=== PATIENT | female | born 1980 | race Caucasian/White ===

== ENCOUNTER 2017-07-25 13:27 | Inpatient (IN) | payer OTHER ==
[2017-07-25] MEDS ORDERED: Sodium Chloride 0.9% 1,000 ML IV ONE (14:11)
--- NOTE | 2017-07-25 14:24 | EDM.PDOC ---
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 Patient indicates she thinks is 12-13 weeks as by dates as well as test.] Review of systems: As per history of present illness and below otherwise all systems reviewed and negative. Past medical history: As per history of present illness and as reviewed below otherwise noncontributory. Surgical history: As per history of present illness and as reviewed below otherwise noncontributory. Social history: No reported history of drug or alcohol abuse. Family history: As per history of present illness and as reviewed below otherwise noncontributory. Physical exam: HEENT: Atraumatic, normocephalic, pupils reactive, negative for conjunctival pallor or scleral icterus, mucous membranes moist, throat clear, neck supple, nontender, trachea midline. Lungs: Clear to auscultation, breath sounds equal bilaterally, chest nontender. Heart: S1S2, regular, negative for clicks, rubs, or JVD. Abdomen: Soft, nondistended, nontender. Negative for masses or hepatosplenomegaly. Negative for costovertebral tenderness. Pelvis: Stable nontender. Genitourinary: Cervix noted to be closed on pelvic exam speculum Rectal: Deferred. Extremities: Atraumatic, negative for cords or calf pain. Neurovascular unremarkable. Neuro: Awake, alert, oriented. Cranial nerves II through XII unremarkable. Cerebellum unremarkable. Motor and sensory unremarkable throughout. Exam nonfocal. Discussed with patient despite the land to have a home it was imperative that they establish a relationship with a resistance welding machine operator should they need one in the future. Discussed 6 weeks of pelvic rest Diagnostics: [CBC, CMP, UA, quantitative hCG] Therapeutics: [] Impression: [Threatened ] Plan: [Pelvic rest follow-up with OB] Definitive disposition and diagnosis as appropriate pending reevaluation and review of above. lower abdominal Pain Score (Numeric/FACES): 6 - Related Data Allergies Allergy/AdvReac Type Severity Reaction Status Date / Time Sulfa (Sulfonamide Allergy Hives Verified 07/25/17 13:41 Antibiotics) Home Meds: Home Meds . [No Known Home Meds] 07/25/17 [History] Past Medical History - Past Health History Medical/Surgical History: Denies Medical/Surgical History - Infectious Disease History Infectious Disease History: Reports: Chicken Pox Social & Family History - Family History Family Medical History: Noncontributory - Tobacco Use Smoking Status *Q: Never Smoker Second Hand Smoke Exposure: No - Caffeine Use Caffeine Use: Reports: Coffee - Recreational Drug Use Recreational Drug Use: No ED ROS GENERAL - Review of Systems Review Of Systems: See Below (See history of present illness) ED EXAM, GENERAL - Physical Exam Exam: See Below (See history of present illness) Course - Vital Signs Last Recorded V/S: Last Vital Signs Temp 36.9 C 07/25/17 13:37 Pulse 124 H 07/25/17 13:37 Resp 20 07/25/17 13:37 BP 120/72 07/25/17 13:37 Pulse Ox 98 07/25/17 13:37 - Orders/Labs/Meds Labs: Laboratory Tests 07/25/17 07/25/17 07/25/17 Range/Units 13:40 13:40 13:40 WBC 27.64 H (4.0-11.0) K/uL RBC 4.85 (4.30-5.90) M/uL Hgb 14.3 (12.0-16.0) g/dL Hct 40.5 (36.0-46.0) % MCV 83.5 (80.0-98.0) fL MCH 29.5 (27.0-32.0) pg MCHC 35.3 (31.0-37.0) g/dL RDW Std Deviation 42.0 (28.0-62.0) fl RDW Coeff of [place] 14 (11.0-15.0) % Plt Count 199 (150-400) K/uL MPV 9.70 (7.40-12.00) fL Add Manual Diff YES Neutrophils % (Manual) 90 H (48.0-80.0) % Band Neutrophils % 4 % Lymphocytes % (Manual) 2 L (16.0-40.0) % Monocytes % (Manual) 4 (0.0-15.0) % Nucleated RBC % 0.0 /100WBC Absolute Seg Neuts 24.9 H (1.4-5.7) Band Neutrophils # 1.1 Lymphocytes # (Manual) 0.6 (0.6-2.4) Monocytes # (Manual) 1.1 H (0.0-0.8) Nucleated RBCs # 0 K/uL Lactate (0.20-2.00) mmol/L Sodium (136-146) mmol/L Potassium (3.5-5.1) mmol/L Chloride (98-110) mmol/L Carbon Dioxide (21-31) mmol/L BUN (6.0-23.0) mg/dL Creatinine (0.6-1.5) mg/dL Est Cr Clr Drug Dosing mL/min Estimated GFR (MDRD) ml/min Glucose (60-110) mg/dL Calcium (8.8-10.8) mg/dL Total Bilirubin (0.1-1.5) mg/dL AST (5-40) IU/L ALT (8-54) IU/L Alkaline Phosphatase (40-150) Total Protein (6.0-8.0) g/dL Albumin (3.5-5.0) g/dL Globulin (2.0-3.5) g/dL Albumin/Globulin Ratio (1.3-2.8) HCG, Quant 00297.0 mIU/mL Urine Color Urine Appearance Urine pH (5.0-8.0) Ur Specific [place] (1.001-1.035) Urine Protein (NEGATIVE) mg/dL Urine Glucose (UA) (NEGATIVE) mg/dL Urine Ketones (NEGATIVE) mg/dL Urine Occult Blood (NEGATIVE) Urine Nitrite (NEGATIVE) Urine Bilirubin (NEGATIVE) Urine Urobilinogen (<2.0) EU/dL Ur Leukocyte Esterase (NEGATIVE) Urine RBC (0-2/HPF) Urine WBC (0-5/HPF) Ur Epithelial Cells (NONE-FEW) Urine Bacteria (NEGATIVE) Blood Type O POSITIVE 07/25/17 07/25/17 07/25/17 Range/Units 13:40 13:40 15:45 WBC (4.0-11.0) K/uL RBC (4.30-5.90) M/uL Hgb (12.0-16.0) g/dL Hct (36.0-46.0) % MCV (80.0-98.0) fL MCH (27.0-32.0) pg MCHC (31.0-37.0) g/dL RDW Std Deviation (28.0-62.0) fl RDW Coeff of [place] (11.0-15.0) % Plt Count (150-400) K/uL MPV (7.40-12.00) fL Add Manual Diff Neutrophils % (Manual) (48.0-80.0) % Band Neutrophils % % Lymphocytes % (Manual) (16.0-40.0) % Monocytes % (Manual) (0.0-15.0) % Nucleated RBC % /100WBC Absolute Seg Neuts (1.4-5.7) Band Neutrophils # Lymphocytes # (Manual) (0.6-2.4) Monocytes # (Manual) (0.0-0.8) Nucleated RBCs # K/uL Lactate 1.1 (0.20-2.00) mmol/L Sodium 135 L (136-146) mmol/L Potassium 3.5 (3.5-5.1) mmol/L Chloride 105 (98-110) mmol/L Carbon Dioxide 18 L (21-31) mmol/L BUN 8 (6.0-23.0) mg/dL Creatinine 0.6 (0.6-1.5) mg/dL Est Cr Clr Drug Dosing 126.05 mL/min Estimated GFR (MDRD) > 60.0 ml/min Glucose 113 H (60-110) mg/dL Calcium 9.4 (8.8-10.8) mg/dL Total Bilirubin 1.0 (0.1-1.5) mg/dL AST 17 (5-40) IU/L ALT 16 (8-54) IU/L Alkaline Phosphatase 48 (40-150) Total Protein 7.5 (6.0-8.0) g/dL Albumin 4.0 (3.5-5.0) g/dL Globulin 3.5 (2.0-3.5) g/dL Albumin/Globulin Ratio 1.1 L (1.3-2.8) HCG, Quant mIU/mL Urine Color YELLOW Urine Appearance CLEAR Urine pH 6.0 (5.0-8.0) Ur Specific [place] >= 1.030 (1.001-1.035) Urine Protein NEGATIVE (NEGATIVE) mg/dL Urine Glucose (UA) NEGATIVE (NEGATIVE) mg/dL Urine Ketones >=80 (NEGATIVE) mg/dL Urine Occult Blood LARGE H (NEGATIVE) Urine Nitrite NEGATIVE (NEGATIVE) Urine Bilirubin NEGATIVE (NEGATIVE) Urine Urobilinogen 0.2 (<2.0) EU/dL Ur Leukocyte Esterase SMALL (NEGATIVE) Urine RBC 8-10 (0-2/HPF) Urine WBC 3-5 (0-5/HPF) Ur Epithelial Cells OCCASIONAL (NONE-FEW) Urine Bacteria FEW (NEGATIVE) Blood Type Meds: Medications Discontinued Medications Generic Name Dose Route Start Last Admin Trade Name Freq PRN Reason Stop Dose Admin Sodium Chloride 1,000 mls @ 999 mls/hr 07/25/17 14:11 07/25/17 15:00 Normal Saline IV 07/25/17 15:11 999 mls/hr STAT ONE Administration Departure - Departure Time of Disposition: 16:30 Disposition: Home, Self-Care 01 Condition: Good Clinical Impression: Threatened - Discharge Information Referrals: PCP,None [Primary Care Provider] - Forms: ED Department Discharge Additional Instructions: The following information is given to patients seen in the emergency department who are being discharged to home. This information is to outline your options for follow-up care. We provide all patients seen in our emergency department with a follow-up referral. The need for follow-up, as well as the timing and circumstances, are variable depending upon the specifics of your emergency department visit. If you don't have a primary care physician on staff, we will provide you with a referral. We always advise you to contact your personal physician following an emergency department visit to inform them of the circumstance of the visit and for follow-up with them and/or the need for any referrals to a consulting specialist. The emergency department will also refer you to a specialist when appropriate. This referral assures that you have the opportunity for follow-up care with a specialist. All of these measure are taken in an effort to provide you with optimal care, which includes your follow-up. Under all circumstances we always encourage you to contact your private physician who remains a resource for coordinating your care. When calling for follow-up care, please make the office aware that this follow-up is from your recent emergency room visit. If for any reason you are refused follow-up, please contact the [facility] Emergency Department at and asked to speak to the emergency department charge nurse. Follow-up with the resistance welding machine operator as discussed Return to ED as needed as discussed [facility] Primary Care - Women's Health [address] [place] [id number]
[2017-07-25 14:30] LABS: CHLORIDE,CL 105 mmol/L (98-110); SODIUM,NA 135 mmol/L (136-146)
--- NOTE | 2017-07-25 14:33 | US ---
EXAMINATION: Transvaginal obstetric ultrasound HISTORY: Bleeding COMPARISON: None TECHNIQUE: Grayscale, M-mode, and color Doppler images obtained transvaginally. FINDINGS: There is a single live intrauterine noted with a heart rate of 160 bpm. There is a tiny crescentic area along the inferior aspect of the gestational sac. The mean sac diameter measur es 5.4 cm and the crown-rump length measures 6.3 cm. This gives an estimated gestational age at 12 we eks and 1 day with an estimated date of delivery at 02/05/2018. A trace free pelvic fluid is noted. The ovaries are not well identified. No adnexal masses. IMPRESSION: 1. Possible minimal subchorionic hemorrhage. 2. Trace free pelvic fluid. 3. Single live intrauterine .
[2017-07-25] MEDS ORDERED: Piperacillin/Tazobactam 3.375 GM in Sodium Chloride 0.9% 50 ML IV ONE (16:49)
[2017-07-25] MEDS ORDERED: Sodium Chloride 0.9% 1,000 ML IV STA (17:09)
--- NOTE | 2017-07-25 17:41 | PCM.HP ---
H&P History of Present Illness - General Date of Service: 07/25/17 Admit Problem/Dx: Admission Diagnosis/Problem Admission Diagnosis/Problem Hypotension Source of Information: Patient, Old Records, Provider - History of Present Illness Initial Comments - Free Text/Narative: This 37 y/o G3 P 2 woman with EGA about 12 weeks presents with scant vaginal bleeding, lower abdominal cramping, malaise and fever. She was seen in the ED and noted to be tachycardia with a heart rate of 124/ minute and with a leukocytosis of over 27,000/HPF. She has two children at home who have had recent symptoms of a viral syndrome. She had an ultrasound in the ED which was c/w possible subchorionic bleed and a viable single gestation. lower abdominal Pain Score (Numeric/FACES): 6 - Related Data Allergies/Adverse Reactions: Allergies Allergy/AdvReac Type Severity Reaction Status Date / Time Sulfa (Sulfonamide Allergy Hives Verified 07/25/17 13:41 Antibiotics) Home Medications: Home Meds . [No Known Home Meds] 07/25/17 [History] Past Medical History - Past Health History Medical/Surgical History: Denies Medical/Surgical History HEENT History: Reports: None Cardiovascular History: Denies: CAD, Cardiomyopathy, Heart Failure, Heart Murmur , Hypertension, [place] Respiratory History: Denies: COPD Gastrointestinal History: Denies: Cirrhosis Genitourinary History: Denies: Chronic Renal Insuffiency Musculoskeletal History: Denies: Amputation, Muscular Dystrophy Neurological History: Denies: Cerebral Palsy, CVA Endocrine/Metabolic History: Denies: Diabetes, Type I, Diabetes, Type II Hematologic History: Denies: Anticoagulation Therapy, Bleeding Disorder Immunologic History: Denies: Immunosuppression Oncologic (Cancer) History: Reports: None - Infectious Disease History Infectious Disease History: Reports: Chicken Pox Social & Family History - Family History Family Medical History: Noncontributory - Tobacco Use Smoking Status *Q: Never Smoker Second Hand Smoke Exposure: No - Caffeine Use Caffeine Use: Reports: Coffee - Alcohol Use Date/Time of Last Drink Comment: she has not had any alcohol intake during this and before drank about one time per month. - Recreational Drug Use Recreational Drug Use: No H&P Review of Systems - Review of Systems: Review Of Systems: See Below General: Reports: Fever, Malaise, Weakness HEENT: Denies: Sore Throat Pulmonary: Denies: Shortness of Breath, Wheezing, Cough, Sputum, Hemoptysis Cardiovascular: Reports: Other (blood pressure less than 100 mm Hg in the ED). Denies: Chest Pain, Edema Gastrointestinal: Reports: Abdominal Pain (intermittent lower abdominal / suprapubic cramping) Genitourinary: Denies: Dysuria, Frequency, Burning, Hematuria Skin: Denies: Cyanosis Neurological: Denies: Confusion Exam - Exam Exam: See Below - Vital Signs Vital Signs: Last Vital Signs Temp 100.1 F 07/25/17 16:40 Pulse 101 H 07/25/17 16:40 Resp 16 07/25/17 16:40 BP 96/57 L 07/25/17 16:40 Pulse Ox 96 07/25/17 16:40 Weight: 68.1 kg - Exam Quality Assessment: No: Supplemental Oxygen General: Alert, Oriented HEENT: EOMI. No: Mucosa Moist & [place] (lips dry) Neck: Supple, Trachea Midline Lungs: Clear to Auscultation, Normal Respiratory Effort Cardiovascular: Regular Rate, Regular Rhythm, Tachycardia GI/Abdominal Exam: Soft, Non-Tender (Female) Exam: Other (cervical exam by Jasmeet Hernandez, TAX ASSOCIATE ATTORNEY revealed that the cervix was closed) Back Exam: No: CVA Tenderness (L), CVA Tenderness (R) Extremities: Non-Tender, Slow Capillary Refill (cap refill in toes about two seconds). No: Pedal Edema Neurological: Cranial Nerves Intact, Normal Speech Neuro Extensive - Mental Status: Normal Mood/Affect, Normal Cognition Neuro Extensive - Motor, Sensory, Reflexes: No: Facial palsy (L), Facial Palsy ( R), Hemeplagia (R), Hemeplagia (L) Psychiatric: Alert, Normal Affect. No: Agitated - Patient Data Lab Results Last 24 hrs: Laboratory Results - last 24 hr 07/25/17 07/25/17 07/25/17 Range/Units 13:40 13:40 13:40 WBC 27.64 H (4.0-11.0) K/uL RBC 4.85 (4.30-5.90) M/uL Hgb 14.3 (12.0-16.0) g/dL Hct 40.5 (36.0-46.0) % MCV 83.5 (80.0-98.0) fL MCH 29.5 (27.0-32.0) pg MCHC 35.3 (31.0-37.0) g/dL RDW Std Deviation 42.0 (28.0-62.0) fl RDW Coeff of [place] 14 (11.0-15.0) % Plt Count 199 (150-400) K/uL MPV 9.70 (7.40-12.00) fL Add Manual Diff YES Neutrophils % (Manual) 90 H (48.0-80.0) % Band Neutrophils % 4 % Lymphocytes % (Manual) 2 L (16.0-40.0) % Monocytes % (Manual) 4 (0.0-15.0) % Nucleated RBC % 0.0 /100WBC Absolute Seg Neuts 24.9 H (1.4-5.7) Band Neutrophils # 1.1 Lymphocytes # (Manual) 0.6 (0.6-2.4) Monocytes # (Manual) 1.1 H (0.0-0.8) Nucleated RBCs # 0 K/uL Lactate (0.20-2.00) mmol/L Sodium (136-146) mmol/L Potassium (3.5-5.1) mmol/L Chloride (98-110) mmol/L Carbon Dioxide (21-31) mmol/L BUN (6.0-23.0) mg/dL Creatinine (0.6-1.5) mg/dL Est Cr Clr Drug Dosing mL/min Estimated GFR (MDRD) ml/min Glucose (60-110) mg/dL Calcium (8.8-10.8) mg/dL Total Bilirubin (0.1-1.5) mg/dL AST (5-40) IU/L ALT (8-54) IU/L Alkaline Phosphatase (40-150) Total Protein (6.0-8.0) g/dL Albumin (3.5-5.0) g/dL Globulin (2.0-3.5) g/dL Albumin/Globulin Ratio (1.3-2.8) HCG, Quant 24747.0 mIU/mL Urine Color Urine Appearance Urine pH (5.0-8.0) Ur Specific [place] (1.001-1.035) Urine Protein (NEGATIVE) mg/dL Urine Glucose (UA) (NEGATIVE) mg/dL Urine Ketones (NEGATIVE) mg/dL Urine Occult Blood (NEGATIVE) Urine Nitrite (NEGATIVE) Urine Bilirubin (NEGATIVE) Urine Urobilinogen (<2.0) EU/dL Ur Leukocyte Esterase (NEGATIVE) Urine RBC (0-2/HPF) Urine WBC (0-5/HPF) Ur Epithelial Cells (NONE-FEW) Urine Bacteria (NEGATIVE) Blood Type O POSITIVE 07/25/17 07/25/17 07/25/17 Range/Units 13:40 13:40 15:45 WBC (4.0-11.0) K/uL RBC (4.30-5.90) M/uL Hgb (12.0-16.0) g/dL Hct (36.0-46.0) % MCV (80.0-98.0) fL MCH (27.0-32.0) pg MCHC (31.0-37.0) g/dL RDW Std Deviation (28.0-62.0) fl RDW Coeff of [place] (11.0-15.0) % Plt Count (150-400) K/uL MPV (7.40-12.00) fL Add Manual Diff Neutrophils % (Manual) (48.0-80.0) % Band Neutrophils % % Lymphocytes % (Manual) (16.0-40.0) % Monocytes % (Manual) (0.0-15.0) % Nucleated RBC % /100WBC Absolute Seg Neuts (1.4-5.7) Band Neutrophils # Lymphocytes # (Manual) (0.6-2.4) Monocytes # (Manual) (0.0-0.8) Nucleated RBCs # K/uL Lactate 1.1 (0.20-2.00) mmol/L Sodium 135 L (136-146) mmol/L Potassium 3.5 (3.5-5.1) mmol/L Chloride 105 (98-110) mmol/L Carbon Dioxide 18 L (21-31) mmol/L BUN 8 (6.0-23.0) mg/dL Creatinine 0.6 (0.6-1.5) mg/dL Est Cr Clr Drug Dosing 126.05 mL/min Estimated GFR (MDRD) > 60.0 ml/min Glucose 113 H (60-110) mg/dL Calcium 9.4 (8.8-10.8) mg/dL Total Bilirubin 1.0 (0.1-1.5) mg/dL AST 17 (5-40) IU/L ALT 16 (8-54) IU/L Alkaline Phosphatase 48 (40-150) Total Protein 7.5 (6.0-8.0) g/dL Albumin 4.0 (3.5-5.0) g/dL Globulin 3.5 (2.0-3.5) g/dL Albumin/Globulin Ratio 1.1 L (1.3-2.8) HCG, Quant mIU/mL Urine Color YELLOW Urine Appearance CLEAR Urine pH 6.0 (5.0-8.0) Ur Specific [place] >= 1.030 (1.001-1.035) Urine Protein NEGATIVE (NEGATIVE) mg/dL Urine Glucose (UA) NEGATIVE (NEGATIVE) mg/dL Urine Ketones >=80 (NEGATIVE) mg/dL Urine Occult Blood LARGE H (NEGATIVE) Urine Nitrite NEGATIVE (NEGATIVE) Urine Bilirubin NEGATIVE (NEGATIVE) Urine Urobilinogen 0.2 (<2.0) EU/dL Ur Leukocyte Esterase SMALL (NEGATIVE) Urine RBC 8-10 (0-2/HPF) Urine WBC 3-5 (0-5/HPF) Ur Epithelial Cells OCCASIONAL (NONE-FEW) Urine Bacteria FEW (NEGATIVE) Blood Type Result Diagrams: 07/25/17 13:40 07/25/17 13:40 *Q Meaningful Use (ADM) - VTE *Q VTE Criteria *Q: - Stroke *Q Stroke Criteria *Q: - AMI *Q AMI Criteria *Q: - Problem List (1) Sepsis SNOMED Code(s): 90707261 ICD Code: A41.9 - SEPSIS, UNSPECIFIED ORGANISM Status: Acute Current Visit: Yes (2) Vaginal bleeding affecting early SNOMED Code(s): 661977639 ICD Code: O20.8 - OTHER HEMORRHAGE IN EARLY Status: Acute Current Visit: Yes Problem List Initiated/Reviewed/Updated: Yes Orders Last 24hrs: Active Orders 24 hr Category Date Time Status Patient Status [ADT] Stat ADT 07/25/17 17:03 Active CULTURE BLOOD [BC] Stat Lab 07/25/17 17:00 Received CULTURE BLOOD [BC] Stat Lab 07/25/17 17:26 Received CULTURE URINE [RM] Stat Lab 07/25/17 17:14 Uncollected Sodium Chloride 0.9% [Normal Saline] 1,000 ml Med 07/25/17 17:09 Active IV NOW Blood Culture x2 Reflex Set [OM.PC] Stat Oth 07/25/17 16:41 Ordered Medication Orders Sodium Chloride (Normal Saline) 1,000 mls @ 999 mls/hr IV NOW STA Stop: 07/25/17 18:09 Assessment/Plan Comment:: 07/25/[address] Alfaro by telephone who agreed to see the patient in consultation. will start on broad spectrum antibiotics . Blood cultures ordered in the ED fluid resuscitation. Anshul Zambrano MD
[2017-07-25] MEDS ORDERED: Ondansetron 4 MG/2 ML SDV IVPUSH PRN (17:45)
[2017-07-25] MEDS ORDERED: Acetaminophen 325 MG Tab PO PRN (17:45)
[2017-07-25] MEDS ORDERED: Folic Acid 1 MG Tab PO SCH (18:00)
[2017-07-25] MEDS ORDERED: Ondansetron 4 MG/2 ML SDV IVPUSH ONE (18:06)
[2017-07-25] MEDS ORDERED: Morphine 10 MG/ML Syringe IV ONE (18:06)
[2017-07-25] MEDS ORDERED: Morphine 2 MG/ML Syringe IVPUSH ONE (18:19)
[2017-07-25] MEDS ORDERED: Morphine 2 MG/ML Syringe ONE (18:20)
[2017-07-25] MEDS ORDERED: HYDROmorphone 2 MG/ML Syringe IVPUSH ONE (18:41)
[2017-07-25] MEDS ORDERED: HYDROmorphone 1 MG/ML Syringe ONE (18:43)
[2017-07-25] MEDS ORDERED: HYDROmorphone 1 MG/ML Syringe IVPUSH STA (18:46)
[2017-07-25] MEDS: Sodium Chloride 0.9% 1,000 ML IV SCH (20:15)
--- NOTE | 2017-07-25 20:28 | PCM.SN ---
- Free Text/Narrative Note: I came by to assess the patient's clinical status. Since my last visit to her while she was in the ED she has, according to nursing staff, passed an intact gestational sac followed by a placenta. The patient seems to be feeling better. Exam: alert nad abdomen: non tender vaginal bleeding is scant/spotting I was advised by ER staff that her blood type is rh positive. I do not see it documented on lab reports. Will order blood type with next blood draw or with blood already drawn A: septic P: as per admission orders. Anshul Zambrano MD
--- NOTE | 2017-07-25 20:33 | PCM.SN ---
- Free Text/Narrative Note: I see that her blood type is O +. Anshul Zambrano MD
[2017-07-25] MEDS: Piperacillin/Tazobactam 4.5 GM in Sodium Chloride 0.9% 100 ML IV SCH (20:34)
[2017-07-25] MEDS ORDERED: Nalbuphine 10 MG/1 ML Vial IVPUSH PRN (21:27)
[2017-07-26] MEDS: Piperacillin/Tazobactam 4.5 GM in Sodium Chloride 0.9% 100 ML IV SCH ×3 (00:28→11:14)
[2017-07-26] MEDS: Sodium Chloride 0.9% 1,000 ML IV SCH ×2 (00:29→07:39)
[2017-07-26 06:26] LABS: CHLORIDE,CL 110 mmol/L (98-110); SODIUM,NA 134 mmol/L (136-146)
[2017-07-26] MEDS ORDERED: Folic Acid 1 MG Tab PO SCH (09:00)
--- NOTE | 2017-07-26 10:01 | PCM.CONS ---
H&P History of Present Illness - General Date of Service: 07/26/17 Admit Problem/Dx: Admission Diagnosis/Problem Admission Diagnosis/Problem Hypotension Source of Information: Patient History Limitations: Reports: No Limitations - History of Present Illness Onset of Symptoms: Reports: Gradual Improves with: Reports: None Worsens with: Reports: None Associated Symptoms: Reports: No Other Symptoms lower abdominal Pain Score (Numeric/FACES): 1 - Related Data Allergies/Adverse Reactions: Allergies Allergy/AdvReac Type Severity Reaction Status Date / Time Sulfa (Sulfonamide Allergy Hives Verified 07/26/17 06:34 Antibiotics) Home Medications: Home Meds . 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: Reports: Musculoskeletal History: Denies: Amputation, Muscular Dystrophy Neurological History: Denies: Cerebral Palsy, CVA Endocrine/Metabolic History: Denies: Diabetes, Type I, Diabetes, Type II Hematologic History: Denies: Anticoagulation Therapy, Bleeding Disorder Immunologic History: Denies: Immunosuppression Oncologic (Cancer) History: Reports: None - Infectious Disease History Infectious Disease History: Reports: Chicken Pox - Past Surgical History Head Surgeries/Procedures: Reports: None Social & Family History - Family History Family Medical History: Noncontributory - Tobacco Use Smoking Status *Q: Never Smoker Second Hand Smoke Exposure: No - Caffeine Use Caffeine Use: Reports: Coffee - Recreational Drug Use Recreational Drug Use: No H&P Review of Systems - Review of Systems: Review Of Systems: See Below General: Reports: No Symptoms HEENT: Reports: No Symptoms Pulmonary: Reports: No Symptoms Cardiovascular: Reports: No Symptoms Gastrointestinal: Reports: No Symptoms Genitourinary: Reports: No Symptoms Musculoskeletal: Reports: No Symptoms Skin: Reports: No Symptoms Psychiatric: Reports: No Symptoms Neurological: Reports: No Symptoms Hematologic/Lymphatic: Reports: No Symptoms Immunologic: Reports: No Symptoms Exam - Exam Exam: See Below - Vital Signs Vital Signs: Last Vital Signs Temp 36.7 C 07/26/17 08:00 Pulse 80 07/26/17 08:00 Resp 16 07/26/17 08:00 BP 98/58 L 07/26/17 08:00 Pulse Ox 96 07/26/17 08:00 Weight: 67.948 kg - Exam General: Alert, Oriented, 4 HEENT: PERRLA, Hearing Intact, Mucosa Moist & [place], Nares Patent, Normal Nasal Septum, Posterior Pharynx Clear, Conjunctiva Clear, EOMI, EACs Clear, TMs Clear Neck: Supple, Trachea Midline, 2 Lungs: Clear to Auscultation, Normal Respiratory Effort Cardiovascular: Regular Rate, Regular Rhythm GI/Abdominal Exam: Normal Bowel Sounds, Soft, Non-Tender, No Organomegaly, No Distention, No Abnormal Bruit, No Mass, Pelvis Stable (Female) Exam: Normal External Exam, Normal Speculum Exam, Normal Bimanual Exam Rectal (Female) Exam: Normal Exam, Normal Rectal Tone Back Exam: Normal Inspection, Full Range of Motion, NT Extremities: Normal Inspection, Normal Range of Motion, Non-Tender, No Pedal Edema, Normal Capillary Refill Skin: Warm, Dry, Intact Neurological: Cranial Nerves Intact, Reflexes Equal Bilateral Neuro Extensive - Mental Status: Alert, Oriented x3, Normal Mood/Affect, Normal Cognition Neuro Extensive - Motor, Sensory, Reflexes: CN II-XII Intact, Normal Gait, Normal Reflexes Psychiatric: Alert, Normal Affect, Normal Mood - Patient Data Lab Results Last 24 hrs: Laboratory Results - last 24 hr 07/26/17 07/26/17 07/26/17 Range/Units 05:31 05:31 05:31 WBC 18.16 H (4.0-11.0) K/uL RBC 3.34 L (4.30-5.90) M/uL Hgb 9.6 L (12.0-16.0) g/dL Hct 28.4 L (36.0-46.0) % MCV 85.0 (80.0-98.0) fL MCH 28.7 (27.0-32.0) pg MCHC 33.8 (31.0-37.0) g/dL RDW Std Deviation 43.5 (28.0-62.0) fl RDW Coeff of Sheba 14 (11.0-15.0) % Plt Count 157 (150-400) K/uL MPV 9.70 (7.40-12.00) fL Neut % (Auto) 83.0 H (48.0-80.0) % Lymph % (Auto) 11.7 L (16.0-40.0) % [place] % (Auto) 4.7 (0.0-15.0) % Eos % (Auto) 0.4 (0.0-7.0) % Baso % (Auto) 0.2 (0.0-1.5) % Neut # (Auto) 15.1 H (1.4-5.7) K/uL Lymph # (Auto) 2.1 (0.6-2.4) K/uL [place] # (Auto) 0.9 H (0.0-0.8) K/uL Eos # (Auto) 0.1 (0.0-0.7) K/uL Baso # (Auto) 0.0 (0.0-0.1) K/uL Nucleated RBC % 0.0 /100WBC Nucleated RBCs # 0 K/uL INR (0.86-1.11) Fibrinogen (215-411) mg/dL D-Dimer, Quantitative (0.0-0.52) mg/LFEU Sodium 134 L (136-146) mmol/L Potassium 3.7 (3.5-5.1) mmol/L Chloride 110 (98-110) mmol/L Carbon Dioxide 19 L (21-31) mmol/L BUN 11 (6.0-23.0) mg/dL Creatinine 0.5 L (0.6-1.5) mg/dL Est Cr Clr Drug Dosing 151.26 mL/min Estimated GFR (MDRD) > 60.0 ml/min Glucose 74 (60-110) mg/dL Calcium 7.7 L (8.8-10.8) mg/dL Magnesium 1.3 L (1.5-2.3) mEq/L Total Bilirubin 0.7 (0.1-1.5) mg/dL AST 12 (5-40) IU/L ALT 11 (8-54) IU/L Alkaline Phosphatase 31 L (40-150) Total Protein 4.6 L (6.0-8.0) g/dL Albumin 2.7 L (3.5-5.0) g/dL Globulin 1.9 L (2.0-3.5) g/dL Albumin/Globulin Ratio 1.4 (1.3-2.8) 07/26/17 Range/Units 05:31 WBC (4.0-11.0) K/uL RBC (4.30-5.90) M/uL Hgb (12.0-16.0) g/dL Hct (36.0-46.0) % MCV (80.0-98.0) fL MCH (27.0-32.0) pg MCHC (31.0-37.0) g/dL RDW Std Deviation (28.0-62.0) fl RDW Coeff of Sheba (11.0-15.0) % Plt Count (150-400) K/uL MPV (7.40-12.00) fL Neut % (Auto) (48.0-80.0) % Lymph % (Auto) (16.0-40.0) % [place] % (Auto) (0.0-15.0) % Eos % (Auto) (0.0-7.0) % Baso % (Auto) (0.0-1.5) % Neut # (Auto) (1.4-5.7) K/uL Lymph # (Auto) (0.6-2.4) K/uL [place] # (Auto) (0.0-0.8) K/uL Eos # (Auto) (0.0-0.7) K/uL Baso # (Auto) (0.0-0.1) K/uL Nucleated RBC % /100WBC Nucleated RBCs # K/uL INR 1.28 H (0.86-1.11) Fibrinogen 384 (215-411) mg/dL D-Dimer, Quantitative 0.99 H (0.0-0.52) mg/LFEU Sodium (136-146) mmol/L Potassium (3.5-5.1) mmol/L Chloride (98-110) mmol/L Carbon Dioxide (21-31) mmol/L BUN (6.0-23.0) mg/dL Creatinine (0.6-1.5) mg/dL Est Cr Clr Drug Dosing mL/min Estimated GFR (MDRD) ml/min Glucose (60-110) mg/dL Calcium (8.8-10.8) mg/dL Magnesium (1.5-2.3) mEq/L Total Bilirubin (0.1-1.5) mg/dL AST (5-40) IU/L ALT (8-54) IU/L Alkaline Phosphatase (40-150) Total Protein (6.0-8.0) g/dL Albumin (3.5-5.0) g/dL Globulin (2.0-3.5) g/dL Albumin/Globulin Ratio (1.3-2.8) Result Diagrams: 07/26/17 05:31 07/26/17 05:31 Isael Results Last 24 hrs: Microbiology 07/25/17 17:26 Anaerobic Blood Culture - Final Blood - Venous - Lab Draw Consult PN Assessment/Plan Problem List Initiated/Reviewed/Updated: Yes My Orders Last 24 Hours: Repeat pelvic ultrasound to make sure her products of conception is completely out Plan: The patient initiated on the emergency room she is status post complete a miscarriage at 12-13 weeks witnessed by emergency room personnel at the time of admission the patient was febrile however today he had a vital sign was stable abdominal examination essentially is normal there is minimum tenderness in the lower part of her abdomen on examination there is minimum vaginal bleeding. My impression that the patient have a complete miscarriage however I am ordering an ultrasound to make sure that all products of conception is out and she does not need any father interferons, if the ultrasound is normal the patient can go home on by mouth antibiotic to be followed in the clinic in 1 week. Thank you for the consultation Date Consult Requested: 07/25/17 Patient History Reviewed: Yes Admission H&P Reviewed: Yes Notified Requestor: Yes
--- NOTE | 2017-07-26 13:57 | US ---
EXAM DATE: 07/25/17 PATIENT'S AGE: 37 Patient: DEBBIE VELIZ Facility: [place], [place] Site . Site : 1980 Study: US Abdomen [id number]/14/2017 7:52:42 PM Ordering Physician: Doctor Hebert Final Report: INDICATION: Pain, elevated white blood cell count TECHNIQUE: Ultrasound abdomen limited. Sonographic images of the right upper quadrant were obtained using coleman-scale and color Doppler images. COMPARISON: None FINDINGS: Liver: Normal in size and echotexture. No masses. No intrahepatic biliary dilatation. Gallbladder: No stones or sludge. Normal wall thickness. No pericholecystic fluid. Common bile duct: 4 mm. Pancreas: Not well visualized. Right kidney: 10.4 cm. Normal echotexture and cortex. No masses, stones, or hydronephrosis. Right lower quadrant: The appendix is not visualized. No sonographic abnormalities involving the right lower quadrant IMPRESSION: Sonographically normal right upper quadrant. The appendix is not visualized. No sonographic abnormalities involving the right lower quadrant. Dictated by Marcos Harris MD @ 07/25/2017 7:59:48 PM Dictated by: Marcos Harris MD @ 07/25/2017 19:59:54 (Electronic Signature) Report Signed by Proxy. ERNESTO
--- NOTE | 2017-07-26 14:30 | US ---
EXAMINATION: Transvaginal pelvic ultrasound HISTORY: Spontaneous COMPARISON: 07/25/2017 TECHNIQUE: Grayscale, color Doppler images obtained of the pelvis transvaginally. FINDINGS: The uterus is grossly normal in size and contour. There is a hypoechoic 2.6 cm fibroid with in the lower uterine segment. Endometrial stripe thickness measures approximately 2 cm. However there is no evidence of retained products of conception or hemorrhagic contents. No significant free pelvi c fluid. The ovaries are not well identified. IMPRESSION: 1. No sonographic evidence of retained products of conception.
--- NOTE | 2017-07-26 14:31 | PCM.DCSUM1 ---
Discharge Summary - Hospital Course Brief History: She was seen in the ER for fever, tachycardia, lower abdominal cramping and scant vaginal bleeding with a known intrauterine and gestational age about 12 + weeks by ultrasound. ER provider stated that the OB/ WATER OPERATOR physician higher education administrator had been contacted and had recommended outpatient treatment. As the ER provider thought that in hospital treatment was indicated, I was called as the hospitalist on duty. I therefore admitted the patient and called the PIPE ORGAN TECHNICIAN physician higher education administrator who agreed to see the patient in consultation. - Discharge Data Discharge Date: 07/26/17 Discharge Disposition: Home, Self-Care 01 Condition: Fair - Discharge Diagnosis/Problem(s) (1) Sepsis SNOMED Code(s): 92173844 ICD Code: A41.9 - SEPSIS, UNSPECIFIED ORGANISM Status: Acute Current Visit: Yes (2) Vaginal bleeding affecting early SNOMED Code(s): 869111178 ICD Code: O20.8 - OTHER HEMORRHAGE IN EARLY Status: Acute Current Visit: Yes - Patient Summary/Data Consults: Consultations 07/25/17 17:45 Consult to Physician [CONS] Routine Hospital Course: Her initial in ER pelvic ultrasound showed a viable first trimester 12 + week gestation with subchorionic bleeding. She was noted to be febrile to over 101 F with initial heart rate of 124/minute and with WBC of 27.64 K with 90 % neutrophils and 4 bands/ HPF. She was started on zosyn. Blood cultures were obtained. AFter admission orders were written but before the patient left the emergency room, she passed an intact gestational sac. Fibrin degradation products, fibrinogen, PT/ PTT were ordered. Fibrinogen was normal, FDP was cancelled as it was a send out test. INR was slightly prolonged at 1.28 and PTT was not done due to some miscommunication at the time of ordering. At discharge repeat ultrasound shows a small 2 cm intramuscular fibroid and no retained products of conception. Dr Alfaro was consulted and recommended discharge home on oral antibiotics. At the time of discharge her vaginal bleeding is minimal and she has minimal suprapubic tenderness. I spoke in detail with the patient and her regarding ultrasound results as well as her diagnosis. I advised that I believe that she had a sepsis with intrauterine infection ( septic ). I recommended hospitalization for a total of at least 72 hours to assess blood cultures. She understands this but both she and her have elected to be discharged home understanding risks of worsening. Her Mg level was 1.3 and she will be prescribed mg oxide 400 mg po bid x seven days Impression: septic hypomagnesemia follow up with a primary care provider or rail operations controller within one week follow up sooner if you get worse pain or fever augmentin 875 mg po bid mg oxide 400 mg po bid x seven days. Anshul Zambrano MD - Discharge Plan Home Medications: Home Meds . [No Known Home Meds] 07/25/17 [History] Referrals: Minoo Thomas DO [Physician] - 08/09/17 8:00 am - Discharge Summary/Plan Comment DC Time >30 min.: Yes - Patient Data Vitals - Most Recent: Last Vital Signs Temp 98.7 F 07/26/17 12:00 Pulse 89 07/26/17 12:00 Resp 16 07/26/17 12:00 BP 132/62 07/26/17 12:00 Pulse Ox 100 07/26/17 12:00 Weight - Most Recent: 67.948 kg I&O - Last 24 hours: Intake & Output 07/25/17 07/26/17 07/26/17 22:59 06:59 14:59 Intake Total 1450 Output Total 500 Balance 950 Lab Results - Last 24 hrs: Laboratory Results - last 24 hr 07/26/17 07/26/17 07/26/17 Range/Units 05:31 05:31 05:31 WBC 18.16 H (4.0-11.0) K/uL RBC 3.34 L (4.30-5.90) M/uL Hgb 9.6 L (12.0-16.0) g/dL Hct 28.4 L (36.0-46.0) % MCV 85.0 (80.0-98.0) fL MCH 28.7 (27.0-32.0) pg MCHC 33.8 (31.0-37.0) g/dL RDW Std Deviation 43.5 (28.0-62.0) fl RDW Coeff of Sheba 14 (11.0-15.0) % Plt Count 157 (150-400) K/uL MPV 9.70 (7.40-12.00) fL Neut % (Auto) 83.0 H (48.0-80.0) % Lymph % (Auto) 11.7 L (16.0-40.0) % [place] % (Auto) 4.7 (0.0-15.0) % Eos % (Auto) 0.4 (0.0-7.0) % Baso % (Auto) 0.2 (0.0-1.5) % Neut # (Auto) 15.1 H (1.4-5.7) K/uL Lymph # (Auto) 2.1 (0.6-2.4) K/uL [place] # (Auto) 0.9 H (0.0-0.8) K/uL Eos # (Auto) 0.1 (0.0-0.7) K/uL Baso # (Auto) 0.0 (0.0-0.1) K/uL Nucleated RBC % 0.0 /100WBC Nucleated RBCs # 0 K/uL INR (0.86-1.11) Fibrinogen (215-411) mg/dL Fibrin Degrad Products D-Dimer, Quantitative (0.0-0.52) mg/LFEU Sodium 134 L (136-146) mmol/L Potassium 3.7 (3.5-5.1) mmol/L Chloride 110 (98-110) mmol/L Carbon Dioxide 19 L (21-31) mmol/L BUN 11 (6.0-23.0) mg/dL Creatinine 0.5 L (0.6-1.5) mg/dL Est Cr Clr Drug Dosing 151.26 mL/min Estimated GFR (MDRD) > 60.0 ml/min Glucose 74 (60-110) mg/dL Calcium 7.7 L (8.8-10.8) mg/dL Magnesium 1.3 L (1.5-2.3) mEq/L Total Bilirubin 0.7 (0.1-1.5) mg/dL AST 12 (5-40) IU/L ALT 11 (8-54) IU/L Alkaline Phosphatase 31 L (40-150) Total Protein 4.6 L (6.0-8.0) g/dL Albumin 2.7 L (3.5-5.0) g/dL Globulin 1.9 L (2.0-3.5) g/dL Albumin/Globulin Ratio 1.4 (1.3-2.8) 07/26/17 Range/Units 05:31 WBC (4.0-11.0) K/uL RBC (4.30-5.90) M/uL Hgb (12.0-16.0) g/dL Hct (36.0-46.0) % MCV (80.0-98.0) fL MCH (27.0-32.0) pg MCHC (31.0-37.0) g/dL RDW Std Deviation (28.0-62.0) fl RDW Coeff of [place]ba (11.0-15.0) % Plt Count (150-400) K/uL MPV (7.40-12.00) fL Neut % (Auto) (48.0-80.0) % Lymph % (Auto) (16.0-40.0) % [place] % (Auto) (0.0-15.0) % Eos % (Auto) (0.0-7.0) % Baso % (Auto) (0.0-1.5) % Neut # (Auto) (1.4-5.7) K/uL Lymph # (Auto) (0.6-2.4) K/uL [place] # (Auto) (0.0-0.8) K/uL Eos # (Auto) (0.0-0.7) K/uL Baso # (Auto) (0.0-0.1) K/uL Nucleated RBC % /100WBC Nucleated RBCs # K/uL INR 1.28 H (0.86-1.11) Fibrinogen 384 (215-411) mg/dL Fibrin Degrad Products Cancelled D-Dimer, Quantitative 0.99 H (0.0-0.52) mg/LFEU Sodium (136-146) mmol/L Potassium (3.5-5.1) mmol/L Chloride (98-110) mmol/L Carbon Dioxide (21-31) mmol/L BUN (6.0-23.0) mg/dL Creatinine (0.6-1.5) mg/dL Est Cr Clr Drug Dosing mL/min Estimated GFR (MDRD) ml/min Glucose (60-110) mg/dL Calcium (8.8-10.8) mg/dL Magnesium (1.5-2.3) mEq/L Total Bilirubin (0.1-1.5) mg/dL AST (5-40) IU/L ALT (8-54) IU/L Alkaline Phosphatase (40-150) Total Protein (6.0-8.0) g/dL Albumin (3.5-5.0) g/dL Globulin (2.0-3.5) g/dL Albumin/Globulin Ratio (1.3-2.8) JAYNA Results - Last 24 hrs: Microbiology 07/25/17 17:26 Anaerobic Blood Culture - Final Blood - Venous - Lab Draw Med Orders - Current: Current Medications Acetaminophen (Tylenol) 650 mg PO Q4H PRN PRN Reason: Pain (Mild 1-3)/fever Last Admin: 07/25/17 18:49 Dose: 650 mg Folic Acid (Folic Acid) 1 mg PO DAILY [facility] Last Admin: 07/26/17 08:33 Dose: 1 mg Piperacillin Sod/Tazobactam (Sod 4.5 gm/ Sodium Chloride) 100 mls @ 100 mls/hr IV Q6H [facility] Last Admin: 07/26/17 11:14 Dose: 100 mls/hr Sodium Chloride (Normal Saline) 1,000 mls @ 200 mls/hr IV ASDIRECTED [facility] Last Admin: 07/26/17 07:39 Dose: 200 mls/hr Nalbuphine HCl (Nubain) 10 mg IVPUSH Q2H PRN PRN Reason: Pain Ondansetron HCl (Zofran) 4 mg IVPUSH Q4H PRN PRN Reason: Nausea Discontinued Medications Folic Acid (Folic Acid) 1 mg PO DAILY [facility] Hydromorphone HCl (Dilaudid) 1 mg IVPUSH ONETIME ONE Stop: 07/25/17 18:42 Last Admin: 07/25/17 18:45 Dose: Not Given Hydromorphone HCl (Dilaudid) 1 mg IVPUSH NOW STA Stop: 07/25/17 18:47 Last Admin: 07/25/17 18:46 Dose: 1 mg Hydromorphone HCl (Dilaudid) Confirm Administered Dose 1 mg .ROUTE .STK-MED ONE Stop: 07/25/17 18:44 Last Admin: 07/25/17 18:50 Dose: Not Given Sodium Chloride (Normal Saline) 1,000 mls @ 999 mls/hr IV STAT ONE Stop: 07/25/17 15:11 Last Admin: 07/25/17 15:00 Dose: 999 mls/hr Piperacillin Sod/Tazobactam (Sod 3.375 gm/ Sodium Chloride) 50 mls @ 100 mls/ hr IV ONETIME ONE Stop: 07/25/17 17:18 Last Admin: 07/25/17 18:14 Dose: 100 mls/hr Sodium Chloride (Normal Saline) 1,000 mls @ 999 mls/hr IV NOW STA Stop: 07/25/17 18:09 Last Admin: 07/25/17 17:45 Dose: 999 mls/hr Morphine Sulfate (Morphine) 2 mg IVPUSH ONETIME ONE Stop: 07/25/17 18:20 Last Admin: 07/25/17 18:24 Dose: 2 mg Morphine Sulfate (Morphine) Confirm Administered Dose 2 mg .ROUTE .STK-MED ONE Stop: 07/25/17 18:21 Last Admin: 07/25/17 18:23 Dose: Not Given Ondansetron HCl (Zofran) 4 mg IVPUSH ONETIME ONE Stop: 07/25/17 18:07 Last Admin: 07/25/17 20:36 Dose: Not Given *Q Meaningful Use (DIS) - VTE *Q VTE Criteria *Q: - Stroke *Q Stroke Criteria *Q: - AMI *Q AMI Criteria *Q:
--- NOTE | 2017-07-26 17:03 | PCM.SN ---
- Free Text/Narrative Note: AFter discharge I was advised that laboratory personnel have noted that her blood culture is growing gram negative organisms. I called and spoke with the patient's and I advised readmission. We discussed the life threatening nature of sepsis. He said he is going to talk to his about it and they will call me back if they are willing to come back for readmission. Anshul Zambrano MD
--- NOTE | 2017-07-27 10:17 | US ---
EXAM DATE: 07/25/17 PATIENT'S AGE: 37 Patient: DEBBIE VELIZ Facility: [facility] Site . Site : 1980 Study: US-Pelvis [id number]/14/2017 7:56:52 PM Ordering Physician: Doctor Hebert Final Report: ADDENDUM: CORRECTED REPORT INDICATION: Status post miscarriage, evaluate for retained products of conception TECHNIQUE: Ultrasound pelvis transabdominal imaging performed. Real time sonographic images with Spectral and color Doppler imaging of the ovaries were obtained. 7: 03 p.m. COMPARISON: 1:52 p.m. FINDINGS: Uterus: 14.8 centimeters x 6.9 centimeters x 1 centimeter Normal echotexture of the myometrium. No masses. Endometrium: Transvaginal imaging was performed to better evaluate the endometrium. 3.4 centimeters in thickness. Small amount of fluid versus identified in the endometrial canal at the fundal level. Right ovary: Not visualized. Left ovary: Not visualized. Cul-de-sac: No significant free fluid. Cervical length: 5.6 centimeters. Possible fibroid at the level of the cervix. IMPRESSION: Thickened homogeneous endometrium with a small amount of fluid or a cyst involving the fundal region. No definitive retained products of conception. The ovaries are not visualized. Dictated by Marcos Harris MD @ 07/25/2017 8:23:52 PM Dictated by: Marcos Harris MD @ 07/25/2017 20:23:58 Signed by: Marcos Harris @ 07/25/2017 8:23:58 PM (Electronic Signature) Signed by: Marcos Harris MD @07/25/2017 8:23:58 PM (Electronic Signature) Report Signed by Proxy. ERNESTO
== END 2017-07-26 15:40 | disposition home or self-care (01) | DRG 872 ==
LOC: MW.ED 13:27 → MW.MS 17:03
PROVIDERS: ADMIT Family Medicine; ATTEND Family Medicine
DX: A41.59 Other Gram-negative sepsis (principal); O03.87 Sepsis following complete or unspecified spontaneous abortion; E83.42 Hypomagnesemia; Z88.2 Allergy status to sulfonamides
CPT/HCPCS: 36415; 76705; 76705-26; 76801; 76801-26; 76856; 76856-26; 80053; 81001; 83605; 83735; 84702; 85025; 85379; 85384; 85610; 86900; 86901; 87040; 87086; 88300; 88305; 96361; 96365; 96375; 99283; 99285-25; A9270-GY; J1170; J2270; J2543; J7030; J7040; J7050

== ENCOUNTER 2019-05-27 18:50 | Inpatient (IN) | payer OTHER ==
[2019-05-27] MEDS ORDERED: Sodium Chloride 0.9% 10 ML SDV IV PRN (18:53)
[2019-05-27] MEDS ORDERED: Tranexamic Acid 1,000 MG in Sodium Chloride 0.9% 100 ML IV PRN (18:53)
[2019-05-27] MEDS ORDERED: Lidocaine 1% 50 ML MDV INJECT PRN (18:53)
[2019-05-27] MEDS ORDERED: Carboprost Tromethamine 250 MCG/1 ML Amp IM PRN (18:53)
[2019-05-27] MEDS ORDERED: Methylergonovine 0.2 MG/1 ML Amp IM PRN (18:53)
[2019-05-27] MEDS ORDERED: Water For Irrigation,Sterile 1,000 ML Container IRR PRN (18:53)
[2019-05-27] MEDS ORDERED: Misoprostol 200 MCG Tab PO PRN (18:53)
[2019-05-27] MEDS ORDERED: Nalbuphine 10 MG/1 ML Vial IVPUSH PRN (18:53)
[2019-05-27] MEDS ORDERED: Sodium Chloride 0.9% 10 ML Syringe FLUSH PRN (18:53)
[2019-05-27] MEDS ORDERED: Oxytocin/0.9 % Sodium Chloride 30 UNIT/500 ML BAG IV SCH (19:00)
[2019-05-27] MEDS ORDERED: Lactated Ringers 1,000 ML IV SCH (19:00)
--- NOTE | 2019-05-27 19:16 | PCM.LDHP ---
L&D History of Present Illness - General Date of Service: 05/27/19 Admit Problem/Dx: Patient Status Order with Admit Dx/Problem 05/27/19 18:53 Patient Status [ADT] Routine Admission Diagnosis/Problem Admission Diagnosis/Problem -related examination 05/27/19 19:08 39yo EDC 05/18/2019 41 2/7wks Active labor, post dates, O+, RI, GBS neg Source of Information: Patient History Limitations: Reports: No Limitations - History of Present Illness Timing/Duration: Reports: minutes: Location, : Reports: Abdomen Quality: Reports: Ache, Burning Improves with: Reports: None Worsens with: Reports: None Associated Symptoms: Reports: N - Related Data Allergies/Adverse Reactions: Allergies Allergy/AdvReac Type Severity Reaction Status Date / Time Sulfa (Sulfonamide Allergy Hives Verified 07/26/17 06:34 Antibiotics) Home Medications: Home Meds Amoxicillin/Clavulanate K [Augmentin 875 MG/125 MG] 1 tab PO Q12HR #14 tablet [Rx] Magnesium Oxide 400 mg PO BID #14 tablet 07/26/17 [Rx] Past Medical History - Past Health History Medical/Surgical History: Denies Medical/Surgical History HEENT History: Reports: None Cardiovascular History: Reports: None [employer]GET[employer] WORKER History: Reports: Oncologic (Cancer) History: Reports: None - Infectious Disease History Infectious Disease History: Reports: Chicken Pox - Past Surgical History Head Surgeries/Procedures: Reports: None Social & Family History - Family History Family Medical History: Noncontributory - Caffeine Use Caffeine Use: Reports: Coffee H&P Review of Systems - Review of Systems: Review Of Systems: See Below General: Reports: No Symptoms HEENT: Reports: No Symptoms Pulmonary: Reports: No Symptoms Cardiovascular: Reports: No Symptoms Gastrointestinal: Reports: No Symptoms Genitourinary: Reports: No Symptoms Musculoskeletal: Reports: No Symptoms Skin: Reports: No Symptoms Psychiatric: Reports: No Symptoms Neurological: Reports: No Symptoms Hematologic/Lymphatic: Reports: No Symptoms Immunologic: Reports: No Symptoms L&D Exam - Exam Exam: See Below - Vital Signs Weight: 87.997 kg - OB Specific Contraction Intensity: Strong Movement: Active Heart Tones: Present Heart Tones per Min: 135 Heart Rate (FHR) Variability: Moderate (6-25 bmp) Presentation: Vertex - Sanchez Score Sanchez Score Cervix Position: Anterior Sanchez Score Consistency: Soft Sanchez Score Effacement: >80% Sanchez Score Dilation: > 5 cm Sanchez Score 's Station: -1 ,0 Sanchez Score Total: 12 - Exam General: Alert, Oriented HEENT: Hearing Intact Lungs: Normal Respiratory Effort GI/Abdominal Exam: Soft, Non-Tender Rectal Exam: Deferred Genitourinary: Normal external exam, Normal bimanual exam, Cervical dilitation, Cervical fluid Back Exam: Normal Inspection, Full Range of Motion Extremities: Normal Inspection, Normal Range of Motion, Non-Tender, No Pedal Edema Skin: Warm, Dry, Intact Neurological: Cranial Nerves Intact, Strength Equal Bilateral, Normal Speech, Normal Tone, Sensation Intact Psychiatric: Alert, Normal Affect, Normal Mood - Problem List (1) Supervision of normal IUP (intrauterine ) in multiavida SNOMED Code(s): 798036777, 289463204, 271256816 ICD Code: Z34.80 - ENCOUNTER FOR SUPRVSN OF NORMAL , UNSP TRIMESTER Status: Acute Priority: High Current Visit: Yes Qualifiers: Trimester: third trimester Qualified Code(s): Z34.83 - Encounter for supervision of other normal , third trimester (2) Post-dates SNOMED Code(s): 49467820 ICD Code: O48.0 - POST-TERM Status: Acute Priority: High Current Visit: Yes Qualifiers: Post-term type: 40-42 weeks gestation Qualified Code(s): O48.0 - Post-term Problem List Initiated/Reviewed/Updated: Yes Orders Last 24hrs: Active Orders 24 hr Category Date Time Status Patient Status [ADT] Routine ADT 05/27/19 18:53 Active Heart Tones [RC] CONTINUOUS Care 05/27/19 18:53 Active Non Stress Test [RC] PER UNIT ROUTINE Care 05/27/19 18:53 Active May Shower [RC] ASDIRECTED Care 05/27/19 18:53 Active Notify Provider [RC] PRN Care 05/27/19 18:53 Active Up ad Salud [RC] ASDIRECTED Care 05/27/19 18:53 Active Vaginal Exam [RC] PRN Care 05/27/19 18:53 Active Vital Signs [RC] PER UNIT ROUTINE Care 05/27/19 18:53 Active CBC W/O DIFF,HEMOGRAM [HEME] Routine Lab 05/27/19 18:55 Received TYPE AND SCREEN [BBK] Routine Lab 05/27/19 18:55 Received Carboprost Tromethamine [Hemabate DS] Med 05/27/19 18:53 Active 250 mcg IM ASDIRECTED PRN Lactated Ringers [Ringers, Lactated] 1,000 ml Med 05/27/19 19:00 Active IV ASDIRECTED Lidocaine 1% [Xylocaine 1%] Med 05/27/19 18:53 Active 50 ml INJECT ONETIME PRN Methylergonovine [Methergine] Med 05/27/19 18:53 Active 0.2 mg IM ASDIRECTED PRN Nalbuphine [Nubain] Med 05/27/19 18:53 Active 10 mg IVPUSH ASDIRECTED PRN Oxytocin/0.9 % Sodium Chloride [Oxytocin 30 Unit/500 ML Med 05/27/19 19:00 Active -NS] 30 unit in 500 ml IV TITRATE Sodium Chloride 0.9% [Normal Saline] Med 05/27/19 18:53 Active 10 ml IV ASDIRECTED PRN Sodium Chloride 0.9% [Saline Flush] Med 05/27/19 18:53 Active 10 ml FLUSH ASDIRECTED PRN Tranexamic Acid [Cyklokapron] 1,000 mg Med 05/27/19 18:53 Active Sodium Chloride 0.9% [Normal Saline] 100 ml IV ONETIME Water For Irrigation,Sterile [Sterile Water for Med 05/27/19 18:53 Active Irrigation] 1,000 ml IRR ASDIRECTED PRN miSOPROStol [Cytotec] Med 05/27/19 18:53 Active 200 mcg PO ONETIME PRN Scalp Electrode [WOMSER] Per Unit Routine Oth 05/27/19 18:53 Ordered Peripheral IV Insertion Adult [OM.PC] Routine Oth 05/27/19 18:53 Ordered Resuscitation Status Routine Resus Stat 05/27/19 18:53 Ordered Medication Orders Carboprost Tromethamine (Hemabate Ds) 250 mcg IM ASDIRECTED PRN PRN Reason: Post Hemorrhage Lactated Ringer's (Ringers, Lactated) 1,000 mls @ 150 mls/hr IV ASDIRECTED CLARK Oxytocin/Sodium Chloride (Oxytocin 30 Unit/500 Ml-Ns) 30 unit in 500 mls @ 999 mls/hr IV TITRATE CLARK Tranexamic Acid 1,000 mg/ (Sodium Chloride) 110 mls @ 660 mls/hr IV ONETIME PRN PRN Reason: Bleeding Lidocaine HCl (Xylocaine 1%) 50 ml INJECT ONETIME PRN PRN Reason: Laceration repair Methylergonovine Maleate (Methergine) 0.2 mg IM ASDIRECTED PRN PRN Reason: Post Hemorrhage Misoprostol (Cytotec) 200 mcg PO ONETIME PRN PRN Reason: Post Hemorrhage Nalbuphine HCl (Nubain) 10 mg IVPUSH ASDIRECTED PRN PRN Reason: Pain (severe 7-10) Sodium Chloride (Saline Flush) 10 ml FLUSH ASDIRECTED PRN PRN Reason: Keep Vein Open Sodium Chloride (Normal Saline) 10 ml IV ASDIRECTED PRN PRN Reason: IV Use Sterile Water (Sterile Water For Irrigation) 1,000 ml IRR ASDIRECTED PRN PRN Reason: delivery Assessment/Plan Comment:: Admit A: 39yo EDC 05/18/2019 41 2/7wks Active labor, post dates, O+, RI, GBS neg P: Admit, anticipate , Dr Alfaro updated
--- NOTE | 2019-05-27 20:17 | PCM.DEL ---
L & D Note - General Info Date of Service: 05/27/19 Mother's Due Date: 05/18/19 - Delivery Note Labor: Spontaneous Delivery Outcome: Livebirth Infant Delivery Method: Spontaneous Vaginal Delivery-Single Delivery Mode: Spontaneous Presentation: Vertex Nuchal Cord: Present Anesthesia Type: None Episiotomy Type: None Laceration: None Placenta: Intact, Spontaneous Cord: 3 Vessels Estimated Blood Loss: 150 Resuscitation Needed: No Score 1 min: 8 Score 5 min: 9 Second Stage Interventions: Reports: Pushing, Pulls Own Legs Back Delivery Comments (Free Text/Narrative):: of viable male, head delivered with great pushing, nuchal x1 reduced over head, shoulders and body followed easily. Infant placed on the mothers abdomen with spont cry. Delayed cord clamping, cord clamped and cut by FOB. Cord blood collected. Placenta delivered grossly intact 3VC. Inspection noted intact perineum. EBL 150cc. APGARS 8/9, Wt: pending bonding. Mother and baby stable. - General Info Date of Service: 05/27/19 Admission Dx/Problem (Free Text): Patient Status Order with Admit Dx/Problem 05/27/19 18:53 Patient Status [ADT] Routine Admission Diagnosis/Problem Admission Diagnosis/Problem -related examination 05/27/19 19:08 39yo EDC 05/18/2019 41 2/7wks Active labor, post dates, O+, RI, GBS neg Functional Status: Reports: Pain Controlled - Review of Systems General: Reports: No Symptoms HEENT: Reports: No Symptoms Pulmonary: Reports: No Symptoms Cardiovascular: Reports: No Symptoms Gastrointestinal: Reports: No Symptoms Genitourinary: Reports: No Symptoms Musculoskeletal: Reports: No Symptoms Skin: Reports: No Symptoms Neurological: Reports: No Symptoms Psychiatric: Reports: No Symptoms - Patient Data Weight - Most Recent: 87.997 kg Lab Results Last 24 Hours: Laboratory Results - last 24 hr 05/27/19 Range/Units 18:55 WBC 10.91 (4.0-11.0) K/uL RBC 4.92 (4.30-5.90) M/uL Hgb 14.5 (12.0-16.0) g/dL Hct 42.6 (36.0-46.0) % MCV 86.6 (80.0-98.0) fL MCH 29.5 (27.0-32.0) pg MCHC 34.0 (31.0-37.0) g/dL RDW Std Deviation 46.9 (28.0-62.0) fl RDW Coeff of Sheba 15 (11.0-15.0) % Plt Count 188 (150-400) K/uL MPV 11.40 (7.40-12.00) fL Nucleated RBC % 0.0 /100WBC Nucleated RBCs # 0 K/uL Med Orders - Current: Current Medications Carboprost Tromethamine (Hemabate Ds) 250 mcg IM ASDIRECTED PRN PRN Reason: Post Hemorrhage Lactated Ringer's (Ringers, Lactated) 1,000 mls @ 150 mls/hr IV ASDIRECTED CLARK Oxytocin/Sodium Chloride (Oxytocin 30 Unit/500 Ml-Ns) 30 unit in 500 mls @ 999 mls/hr IV TITRATE CLARK Tranexamic Acid 1,000 mg/ (Sodium Chloride) 110 mls @ 660 mls/hr IV ONETIME PRN PRN Reason: Bleeding Lidocaine HCl (Xylocaine 1%) 50 ml INJECT ONETIME PRN PRN Reason: Laceration repair Methylergonovine Maleate (Methergine) 0.2 mg IM ASDIRECTED PRN PRN Reason: Post Hemorrhage Misoprostol (Cytotec) 200 mcg PO ONETIME PRN PRN Reason: Post Hemorrhage Nalbuphine HCl (Nubain) 10 mg IVPUSH ASDIRECTED PRN PRN Reason: Pain (severe 7-10) Sodium Chloride (Saline Flush) 10 ml FLUSH ASDIRECTED PRN PRN Reason: Keep Vein Open Sodium Chloride (Normal Saline) 10 ml IV ASDIRECTED PRN PRN Reason: IV Use Sterile Water (Sterile Water For Irrigation) 1,000 ml IRR ASDIRECTED PRN PRN Reason: delivery - Exam General: Alert, Oriented, Cooperative, No Acute Distress Lungs: Normal Respiratory Effort GI/Abdominal Exam: Soft, Non-Tender (Female) Exam: Normal External Exam, Normal Bimanual Exam, Vaginal Bleeding. No: Cervical Lesions, Vaginal Lesions, Vaginal Tears Back Exam: Normal Inspection, Full Range of Motion Extremities: Normal Inspection, Normal Range of Motion, Non-Tender, No Pedal Edema Skin: Warm, Dry, Intact Neurological: No New Focal Deficit, Normal Speech, Normal Tone, Strength Equal Bilateral, Sensation Intact Psy/Mental Status: Alert, Normal Affect, Normal Mood - Problem List & Annotations (1) Supervision of normal IUP (intrauterine ) in multigravida SNOMED Code(s): 384798949, 790808636, 740438343 Code(s): Z34.80 - ENCOUNTER FOR SUPRVSN OF NORMAL , UNSP TRIMESTER Status: Acute Priority: High Current Visit: Yes Qualifiers: Trimester: third trimester Qualified Code(s): Z34.83 - Encounter for supervision of other normal , third trimester (2) Post-dates SNOMED Code(s): 97137137 Code(s): O48.0 - POST-TERM Status: Acute Priority: High Current Visit: Yes Qualifiers: Post-term type: 40-42 weeks gestation Qualified Code(s): O48.0 - Post-term (3) (normal spontaneous vaginal delivery) SNOMED Code(s): 20726159, 957241629 Code(s): O80 - ENCOUNTER FOR FULL-TERM UNCOMPLICATED DELIVERY Status: Acute Priority: High Current Visit: Yes - Problem List Review Problem List Initiated/Reviewed/Updated: Yes - My Orders Last 24 Hours: My Active Orders 05/27/19 18:53 Patient Status [ADT] Routine Heart Tones [RC] CONTINUOUS Non Stress Test [RC] PER UNIT ROUTINE May Shower [RC] ASDIRECTED Notify Provider [RC] PRN Up ad Salud [RC] ASDIRECTED Vaginal Exam [RC] PRN Vital Signs [RC] PER UNIT ROUTINE Carboprost Tromethamine [Hemabate DS] 250 mcg IM ASDIRECTED PRN Lidocaine 1% [Xylocaine 1%] 50 ml INJECT ONETIME PRN Methylergonovine [Methergine] 0.2 mg IM ASDIRECTED PRN Nalbuphine [Nubain] 10 mg IVPUSH ASDIRECTED PRN Sodium Chloride 0.9% [Normal Saline] 10 ml IV ASDIRECTED PRN Sodium Chloride 0.9% [Saline Flush] 10 ml FLUSH ASDIRECTED PRN Tranexamic Acid [Cyklokapron] 1,000 mg Sodium Chloride 0.9% [Normal Saline] 100 ml IV ONETIME Water For Irrigation,Sterile [Sterile Water for Irrigation] 1,000 ml IRR ASDIRECTED PRN miSOPROStol [Cytotec] 200 mcg PO ONETIME PRN Scalp Electrode [WOMSER] Per Unit Routine Peripheral IV Insertion Adult [OM.PC] Routine Resuscitation Status Routine 05/27/19 18:55 TYPE AND SCREEN [BBK] Routine 05/27/19 19:00 Lactated Ringers [Ringers, Lactated] 1,000 ml IV ASDIRECTED Oxytocin/0.9 % Sodium Chloride [Oxytocin 30 Unit/500 ML-NS] 30 unit in 500 ml IV TITRATE - Plan Plan:: Admit A: 39yo EDC 05/18/2019 41 2/7wks Active labor, post dates, O+, RI, GBS neg P: Admit, anticipate , Dr Alfaro updated Delivery A: of male, APGARS 8/9, Wt pending. Intact perineum EBL 150cc. Stable P: Routine pp plan of care
[2019-05-27] MEDS ORDERED: Benzocaine/Menthol 20%-0.5% Spray 78 GM Cannister TOP PRN (20:22)
[2019-05-27] MEDS ORDERED: Bisacodyl 10 MG Supp RECTAL PRN (20:22)
[2019-05-27] MEDS ORDERED: Ibuprofen 800 MG Tab PO PRN (20:22)
[2019-05-27] MEDS ORDERED: Acetaminophen 500 MG Tab PO PRN ×2 (20:22)
[2019-05-27] MEDS ORDERED: oxyCODONE 5 MG Tab PO PRN (20:22)
[2019-05-27] MEDS ORDERED: Witch Hazel Medicated Pads 40/Jar TOP PRN (20:22)
[2019-05-27] MEDS ORDERED: Ibuprofen 400 MG Tab PO PRN (20:22)
[2019-05-27] MEDS ORDERED: Docusate Sodium 100 MG Cap PO PRN (20:22)
[2019-05-27] MEDS ORDERED: Lanolin 100% Cream 7 GM Tube TOP PRN (20:22)
--- NOTE | 2019-05-28 10:46 | PCM.PNPP ---
- General Info Date of Service: 05/28/19 Functional Status: Reports: Pain Controlled - Review of Systems General: Reports: No Symptoms HEENT: Reports: No Symptoms Pulmonary: Reports: No Symptoms Cardiovascular: Reports: No Symptoms Gastrointestinal: Reports: No Symptoms Genitourinary: Reports: No Symptoms Musculoskeletal: Reports: No Symptoms Skin: Reports: No Symptoms Neurological: Reports: No Symptoms Psychiatric: Reports: No Symptoms - General Info Date of Service: 05/28/19 - Patient Data Vital Signs - Most Recent: Last Vital Signs Temp 36.3 C 05/28/19 07:57 Pulse 66 05/28/19 07:57 Resp 18 05/28/19 07:57 BP 135/91 H 05/28/19 07:57 Pulse Ox 98 05/28/19 07:57 Weight - Most Recent: 88.451 kg Lab Results - Last 24 Hours: Laboratory Results - last 24 hr 05/27/19 05/27/19 Range/Units 18:55 20:42 WBC 10.91 (4.0-11.0) K/uL RBC 4.92 (4.30-5.90) M/uL Hgb 14.5 (12.0-16.0) g/dL Hct 42.6 (36.0-46.0) % MCV 86.6 (80.0-98.0) fL MCH 29.5 (27.0-32.0) pg MCHC 34.0 (31.0-37.0) g/dL RDW Std Deviation 46.9 (28.0-62.0) fl RDW Coeff of Sheba 15 (11.0-15.0) % Plt Count 188 (150-400) K/uL MPV 11.40 (7.40-12.00) fL Nucleated RBC % 0.0 /100WBC Nucleated RBCs # 0 K/uL Blood Type O POSITIVE Antibody Screen NEGATIVE Med Orders - Current: Current Medications Acetaminophen (Tylenol Extra Strength) 500 mg PO Q4H PRN PRN Reason: Pain Acetaminophen (Tylenol Extra Strength) 1,000 mg PO Q4H PRN PRN Reason: Pain Benzocaine/Menthol (Dermoplast Pain Relief 20%-0.5% [place]) 0 gm TOP ASDIRECTED PRN PRN Reason: Perineal Comfort Measure Bisacodyl (Dulcolax) 10 mg RECTAL ONETIME PRN PRN Reason: Constipation Docusate Sodium (Colace) 100 mg PO BID PRN PRN Reason: Constipation Emollient Ointment (Lansinoh Hpa) 0 gm TOP ASDIRECTED PRN PRN Reason: Sore Nipples Ibuprofen (Motrin) 400 mg PO Q4H PRN PRN Reason: Pain Ibuprofen (Motrin) 800 mg PO Q6H PRN PRN Reason: Pain Oxycodone HCl (Oxycodone) 5 mg PO Q2H PRN PRN Reason: Pain Witch Rosa (Tucks) 1 pad TOP ASDIRECTED PRN PRN Reason: comfort care Discontinued Medications Carboprost Tromethamine (Hemabate Ds) 250 mcg IM ASDIRECTED PRN PRN Reason: Post Hemorrhage Lactated Ringer's (Ringers, Lactated) 1,000 mls @ 150 mls/hr IV ASDIRECTED CLARK Oxytocin/Sodium Chloride (Oxytocin 30 Unit/500 Ml-Ns) 30 unit in 500 mls @ 999 mls/hr IV TITRATE CLARK Tranexamic Acid 1,000 mg/ (Sodium Chloride) 110 mls @ 660 mls/hr IV ONETIME PRN PRN Reason: Bleeding Lidocaine HCl (Xylocaine 1%) 50 ml INJECT ONETIME PRN PRN Reason: Laceration repair Methylergonovine Maleate (Methergine) 0.2 mg IM ASDIRECTED PRN PRN Reason: Post Hemorrhage Misoprostol (Cytotec) 200 mcg PO ONETIME PRN PRN Reason: Post Hemorrhage Nalbuphine HCl (Nubain) 10 mg IVPUSH ASDIRECTED PRN PRN Reason: Pain (severe 7-10) Sodium Chloride (Saline Flush) 10 ml FLUSH ASDIRECTED PRN PRN Reason: Keep Vein Open Sodium Chloride (Normal Saline) 10 ml IV ASDIRECTED PRN PRN Reason: IV Use Sterile Water (Sterile Water For Irrigation) 1,000 ml IRR ASDIRECTED PRN PRN Reason: delivery - Interaction Infant Disposition, : [place] in Room with Family Infant Interaction: Holding Support Person: - Recovery Exam Fundal Tone: Firm Fundal Level: 1 Fingerbreadths Above Umbilicus Fundal Placement: Midline Lochia Amount: Small Lochia Color: Rubra/Red Episiotomy/Laceration: None Bladder Status: Voiding - Exam General: Alert, Oriented HEENT: Pupils Equal Neck: Supple Lungs: Clear to Auscultation, Normal Respiratory Effort Cardiovascular: Regular Rate, Regular Rhythm GI/Abdominal Exam: Normal Bowel Sounds, Soft, Non-Tender, No Organomegaly, No Distention, No Abnormal Bruit, No Mass, Pelvis Stable Extremities: Normal Inspection, Normal Range of Motion, Non-Tender, No Pedal Edema, Normal Capillary Refill Skin: Warm, Dry, Intact Wound/Incisions: Healing Well Neurological: No New Focal Deficit Psy/Mental Status: Alert, Normal Affect, Normal Mood - Problem List Review Problem List Initiated/Reviewed/Updated: Yes - Assessment Assessment:: Status post normal spontaneous vaginal delivery patient is doing well and she would be discharged home in a.m. - Plan Plan:: Admit A: 39yo EDC 05/18/2019 41 2/7wks Active labor, post dates, O+, RI, GBS neg P: Admit, anticipate , Dr Alfaro updated Delivery A: of male, APGARS 8/9, Wt pending. Intact perineum EBL 150cc. Stable P: Routine pp plan of care
--- NOTE | 2019-05-29 08:58 | PCM.DCSUM1 ---
Discharge Summary - Hospital Course Diagnosis: Stroke: No - Discharge Data Discharge Date: 05/29/19 Discharge Disposition: Home, Self-Care 01 Condition: Good - Referral to Home Health Primary Care Physician: María Tobias CNM - Patient Instructions Diet: Usual Diet as Tolerated Activity: As Tolerated - Discharge Plan Home Medications: Home Meds Amoxicillin/Clavulanate K [Augmentin 875 MG/125 MG] 1 tab PO Q12HR #14 tablet [Rx] Magnesium Oxide 400 mg PO BID #14 tablet 07/26/17 [Rx] Referrals: [facility] [Outside] María Tobias CNM [Primary Care Provider] - 07/10/19 10:45 am - Discharge Summary/Plan Comment DC Time >30 min.: Yes - General Info Date of Service: 05/29/19 Functional Status: Reports: Pain Controlled - Review of Systems General: Reports: No Symptoms HEENT: Reports: No Symptoms Pulmonary: Reports: No Symptoms Cardiovascular: Reports: No Symptoms Gastrointestinal: Reports: No Symptoms Genitourinary: Reports: No Symptoms Musculoskeletal: Reports: No Symptoms Skin: Reports: No Symptoms Neurological: Reports: No Symptoms Psychiatric: Reports: No Symptoms - Patient Data Vitals - Most Recent: Last Vital Signs Temp 36.3 C 05/29/19 08:02 Pulse 77 05/29/19 08:02 Resp 18 05/29/19 08:02 BP 152/104 H 05/29/19 08:35 Pulse Ox 98 05/29/19 08:02 Weight - Most Recent: 88.451 kg Med Orders - Current: Current Medications Acetaminophen (Tylenol Extra Strength) 500 mg PO Q4H PRN PRN Reason: Pain Acetaminophen (Tylenol Extra Strength) 1,000 mg PO Q4H PRN PRN Reason: Pain Benzocaine/Menthol (Dermoplast Pain Relief 20%-0.5% [place]) 0 gm TOP ASDIRECTED PRN PRN Reason: Perineal Comfort Measure Bisacodyl (Dulcolax) 10 mg RECTAL ONETIME PRN PRN Reason: Constipation Docusate Sodium (Colace) 100 mg PO BID PRN PRN Reason: Constipation Emollient Ointment (Lansinoh Hpa) 0 gm TOP ASDIRECTED PRN PRN Reason: Sore Nipples Ibuprofen (Motrin) 400 mg PO Q4H PRN PRN Reason: Pain Ibuprofen (Motrin) 800 mg PO Q6H PRN PRN Reason: Pain Oxycodone HCl (Oxycodone) 5 mg PO Q2H PRN PRN Reason: Pain Witch Rosa (Tucks) 1 pad TOP ASDIRECTED PRN PRN Reason: comfort care Discontinued Medications Carboprost Tromethamine (Hemabate Ds) 250 mcg IM ASDIRECTED PRN PRN Reason: Post Hemorrhage Lactated Ringer's (Ringers, Lactated) 1,000 mls @ 150 mls/hr IV ASDIRECTED CLARK Oxytocin/Sodium Chloride (Oxytocin 30 Unit/500 Ml-Ns) 30 unit in 500 mls @ 999 mls/hr IV TITRATE CLARK Tranexamic Acid 1,000 mg/ (Sodium Chloride) 110 mls @ 660 mls/hr IV ONETIME PRN PRN Reason: Bleeding Lidocaine HCl (Xylocaine 1%) 50 ml INJECT ONETIME PRN PRN Reason: Laceration repair Methylergonovine Maleate (Methergine) 0.2 mg IM ASDIRECTED PRN PRN Reason: Post Hemorrhage Misoprostol (Cytotec) 200 mcg PO ONETIME PRN PRN Reason: Post Hemorrhage Nalbuphine HCl (Nubain) 10 mg IVPUSH ASDIRECTED PRN PRN Reason: Pain (severe 7-10) Sodium Chloride (Saline Flush) 10 ml FLUSH ASDIRECTED PRN PRN Reason: Keep Vein Open Sodium Chloride (Normal Saline) 10 ml IV ASDIRECTED PRN PRN Reason: IV Use Sterile Water (Sterile Water For Irrigation) 1,000 ml IRR ASDIRECTED PRN PRN Reason: delivery - Exam General: Reports: Alert, Oriented HEENT: Reports: Pupils Equal, Pupils Reactive, EOMI, Mucous Membr. Moist/[place] Neck: Reports: Supple Lungs: Reports: Clear to Auscultation, Normal Respiratory Effort Cardiovascular: Reports: Regular Rate, Regular Rhythm GI/Abdominal Exam: Normal Bowel Sounds, Soft, Non-Tender, No Organomegaly, No Distention, No Abnormal Bruit, No Mass, Pelvis Stable (Female) Exam: Normal External Exam, Normal Speculum Exam, Normal Bimanual Exam Rectal (Female) Exam: Normal Exam, Normal Rectal Tone Back Exam: Reports: Normal Inspection, Full Range of Motion Extremities: Normal Inspection, Normal Range of Motion, Non-Tender, No Pedal Edema, Normal Capillary Refill Skin: Reports: Warm, Dry, Intact Wound/Incisions: Reports: Healing Well Neurological: Reports: No New Focal Deficit Psy/Mental Status: Reports: Alert, Normal Affect, Normal Mood
== END 2019-05-29 19:10 | disposition home or self-care (01) | DRG 807 ==
LOC: MW.OBCHECK 18:50 → MW.OB 18:52 → MW.OBCHECK 18:53 → MW.OB 18:53 → OBSVTOIN 19:56 → MW.OB 23:53
PROVIDERS: ADMIT Obstetrics & Gynecology; ATTEND Obstetrics & Gynecology
PROC: 10E0XZZ Delivery of Products of Conception, External Approach (ICD-10-PCS; principal; 2019-05-27)
DX: O48.0 Post-term pregnancy (principal); Z37.0 Single live birth; Z3A.41 41 weeks gestation of pregnancy; O69.81X0 Labor and delivery complicated by cord around neck, without compression, not applicable or unspecified
CPT/HCPCS: 36415; 59025; 59409; 85027; 86850; 86900; 86901